=== PATIENT | male | born 1955 | race Caucasian/White ===

== ENCOUNTER → 2018-11-08 | Outpatient (CLI) | payer OTHER ==
[~2018-11-08] MED LIST: REGADENOSON 0.4 MG/5 ML DISP.SYRIN. IV ONE
--- NOTE | 2018-11-08 15:40 | PCVCIMAG ---
APPROVED REPORT Imaging Protocol: Rest Tc-99m/Stress Tc-99m 1 day Study performed: 11/08/2018 12:47:51 Indication: SOA, Pre op, Abn EKG Patient Location: Out-Patient Stress Nurse: Cinthya Manning RN, Soniya Balderrama RN [place] Tech:Thomas CheungFAM Ht: 5 ft 11 in Wt: 215 lbs BSA: 2.17 m2 HR: 59 bpm BP: 142/81 mmHg BMI: 29.98 Rhythm: Sinus Bradycardia, Nonspecific T wave Abnormality Medical History Medical History: Age, Hyperlipidemia, Former smoker Medications: Atorvastatin Allergies: No known drug allergies Pretest Chest Pain Characteristics: No chest pain Exercise History: Indeterminate Physical Disabilities: Hips Resting Data Rest SPECT myocardial perfusion imaging was performed in supine position 45 minutes following the intravenous injection of 10.8 mCi of Tc-99m Sestamibi. Time of rest injection: 1240 Date: 11/08/2018 Administration Route: IV Administration Site: Right AC Pharmacologic Stress Pharmacologic stress test was performed by injecting Regadenoson 0.4 mg IV push over 10-15 seconds immediately followed by the intravenous injection of 33.9 mCi of Tc-99m Sestamibi. Time of stress injection: 1345 Date: 11/08/2018 Administration Route: IV Administration Site: Right AC Gated Stress SPECT was performed 45 minutes after stress injection. The images were gated to evaluate regional wall motion and calculate left ventricular ejection fraction. Stress Test Details Stress Test: Pharmacologic stress testing performed using 0.4 mg of regadenoson per 5 mL given IV over 10 seconds. Reason for pharmacologic stress test: Hip pain. HRMax Heart Rate (APMHR): 159 bpm Resting HR: 59 bpmTarget HR (85% APMHR): 135 bpm Max HR Achieved: 90 bpm % of APMHR: 56 Recovery HR: 81 bpm BP Resting BP: 142/81 mmHg Max BP: 111/69 mmHg Recovery BP: 133/81 mmHg ECG Resting ECG: Sinus Bradycardia, NS T wave abnormality Stress ECG: Sinus Rhythm, NS T wave abnormality ST Change: Non-ischemic Arrhythmia: None Recovery ECG: Sinus Rhythm, NS T wave abnormality Clinical Reason for Termination: Completed protocol Stress Symptoms: Lightheaded Exercise duration: min 55 sec Symptoms resolved during recovery. Study Quality Study: Good Study Data Post stress, the left ventricular ejection was 58%.. SSS: 0 SRS: 0 SDS: 0 TID = 0.98. Perfusion There is a medium area of moderately reduced uptake in the mid and apical segment of the anteroseptal wall which is seen on the stress images and improves on the resting images. This area thickens and moves normally and is most consistent with ischemia. Wall Motion Normal left ventricular wall motion. Nuclear Conclusion ECG Findings: negative for ischemia Clinical Findings: non-diagnostic Nuclear Findings: positive for ischemia Exercise Capacity: not assessed Left Ventricular Function: normal There is a reversible defect in the mid to apical anterior wall, consistent with ischemia. There is normal global and segmental LV systolic function.
== END | disposition home or self-care (01) ==
LOC: PCVCIMAG 13:23
PROVIDERS: ATTEND Internal Medicine Cardiovascular Disease
DX: Z01.818 Encounter for other preprocedural examination (principal); R94.31 Abnormal electrocardiogram [ECG] [EKG]; E78.5 Hyperlipidemia, unspecified; Z87.891 Personal history of nicotine dependence
CPT/HCPCS: 78452; 93017; A9500; J2785